=== PATIENT | male | born 1945 ===

== ENCOUNTER 2017-09-01 12:57 | Inpatient (IN) | payer OTHER ==
[~2017-09-01] VITALS: Ht 172.7 cm; Wt 68.5 kg
[2017-09-08] MEDS ORDERED: LIPITOR20 MG PO (11:10)
[2017-09-08] MEDS ORDERED: DOCUSATE SODIU100 MG PO (14:00)
[2017-09-08] MEDS ORDERED: PERCOCET 5-3251 EACH PO (14:01)
[2017-09-08] MEDS ORDERED: CLONAZEPAM1 MG PO (14:01)
== END 2017-09-08 14:36 | disposition home or self-care (01) | DRG 454 ==
LOC: O/R 09-07 04:33 → PED 09-07 04:33 → SURG 09-07 07:00 → PED 09-07 10:13
PROVIDERS: Orthopaedic Surgery Orthopaedic Surgery of the Spine
PROC: 0RG20A0 Fusion of 2 or more Cervical Vertebral Joints with Interbody Fusion Device, Anterior Approach, Anterior Column, Open Approach (ICD-10-PCS; 2017-09-07)
PROC: 0RG20K1 Fusion of 2 or more Cervical Vertebral Joints with Nonautologous Tissue Substitute, Posterior Approach, Posterior Column, Open Approach (ICD-10-PCS; 2017-09-07)
PROC: 0RT30ZZ Resection of Cervical Vertebral Disc, Open Approach (ICD-10-PCS; principal; 2017-09-07 07:00)
DX: M50.01 Cervical disc disorder with myelopathy, high cervical region (principal); M47.12 Other spondylosis with myelopathy, cervical region